=== PATIENT | female | born 1945 | race Caucasian/White ===

== ENCOUNTER 2022-06-01 13:14 | Emergency (ER) | payer MEDICARE, OTHER, SELFPAY ==
[2022-06-01 13:22] VITALS: BP 138/77; PULSE 63; RESP 20; TEMP 36.6; O2SAT 99
--- NOTE | 2022-06-01 13:41 | ED.FEMALEGU ---
HPI - Female Genitourinary General Chief complaint: Urogenital-Female Stated complaint: Urinary Problem Time Seen by Provider: 06/01/22 13:41 Source: patient and RN notes reviewed History of Present Illness HPI Narrative: Patient is a 76-year-old female who presents the urgent care with complaints of a possible UTI due to discomfort and dysuria. Patient denies of any fever, nausea, vomiting. States that she has been taking Azo. States symptoms started this morning. No other acute complaints. No acute distress noted. Patient aware of the plan of care. Some parts of this dictation were generated by voice recognition software and may contain typographical and/or grammatical inaccuracies. Related Data Home Medications Medication Instructions Recorded Confirmed conjugated estrogens 0.45 mg 0.45 mg PO DAILY 06/01/22 06/01/22 tablet (Premarin) trazodone 50 mg tablet 50 mg PO QHS PRN Sleep 06/01/22 06/01/22 Allergies Allergy/AdvReac Type Severity Reaction Status Date / Time Penicillins Allergy Unknown swells Verified 06/01/22 13:23 Sulfa (Sulfonamide Allergy Unknown n/v Verified 06/01/22 13:23 Antibiotics) Review of Systems Review of Systems: CONSTITUTIONAL: Denies fever, chills, or sweats. EYES: Denies visual changes, redness, or discharge. ENT: Denies rhinorrhea, congestion, sore throat, or otalgia. CARDIOVASCULAR: Denies chest pain, palpitations, or edema. RESPIRATORY: Denies cough or dyspnea. GASTROINTESTINAL: Denies abdominal pain, nausea, vomiting, or diarrhea. GENITOURINARY: Reports of dysuria SKIN: Denies rash or itching. MUSCULOSKELETAL: Denies back pain, joint pain, or myalgia. NEUROLOGIC: Denies headache, numbness, or weakness. All other systems reviewed are negative, except as documented in HPI. PMFSH Comments At the time of my signature, I reviewed and agree with the nursing past medical, surgical, social, and family history. There is no relevant family history pertinent to the patient complaint. Exam Narrative: GENERAL: This is a well-nourished, well-developed patient, in no apparent distress. HEAD: normocephalic, atraumatic. EYES: PERRL. Sclera clear/white. Vision is grossly intact. EARS: External ears normal NOSE: External nose normal with no obvious nasal discharge, nares without redness, no rhinorrhea. THROAT: Mucous membranes moist NECK: Neck supple CARDIOVASCULAR: Regular rate and rhythm without murmurs, gallops, or rubs. RESPIRATORY: Clear to auscultation. Breath sounds equal bilaterally. No wheezes, rales, or rhonchi. GASTROINTESTINAL: Abdomen soft, non-tender, nondistended. SKIN: warm, intact with no suspicious lesions or rash, good texture and turgor. NEURO: awake, alert, and oriented to person, place and time. There were no obvious focal neurologic abnormalities. EXTREMITIES: No clubbing, cyanosis, or edema. BACK: Negative bilateral CVA tenderness Course Course Level of Care: Express Care Visit Vital Signs Vital signs: Vital Signs Temperature 97.9 F 06/01/22 13:22 Pulse Rate 63 06/01/22 13:22 Respiratory Rate 20 06/01/22 13:22 Blood Pressure 138/77 06/01/22 13:22 Pulse Oximetry 99 06/01/22 13:22 Oxygen Delivery Room Air 06/01/22 13:22 Temperature 97.9 F 06/01/22 13:22 Pulse Rate 63 06/01/22 13:22 Respiratory Rate 20 06/01/22 13:22 Blood Pressure 138/77 06/01/22 13:22 Pulse Oximetry 99 06/01/22 13:22 Oxygen Delivery Room Air 06/01/22 13:22 Reviewed MDM - Female Genitourinary MDM Narrative Medical decision making narrative: Reviewed lab results with the patient. She is aware that urine analysis is likely indicative of UTI. Advised her to complete the oral antibiotic regimen as prescribed. Be sure to eat and drink with the medication. May continue the Azo as needed. Do not sit in soapy bath water. Avoid sugary and caffeinated drinks and increase your water intake. If you develop any increase in symptoms associated with na
== END 2022-06-01 13:53 | disposition home or self-care (01) ==
PROVIDERS: Emergency Provider Nurse Practitioner Family; PCP Family Medicine
DX: N39.0 Urinary tract infection, site not specified (principal)
CPT/HCPCS: 81003; 87086; 87088; 99203; G0463

== ENCOUNTER 2024-02-09 17:08 | Emergency (ER) | payer MEDICARE, OTHER, SELFPAY ==
--- NOTE | ~2024-02-09 | XR_ITS ---
EXAMINATION: XR chest 2V Exam Date/Time: 02/09/2024 17:40 CDT HISTORY: cough, sob x4 days Comparison: None. RESULT: Lines, tubes, and devices: None. Lungs and pleura: Clear. Cardiomediastinal silhouette: Hiatal hernia, otherwise unremarkable. Other: No acute osseous or upper abdominal finding. Uncomplicated appearing thoracolumbar fusion lefty dware. IMPRESSION: No acute cardiopulmonary process. Reviewed, dictated and finalized at location K.
[2024-02-09 17:15] VITALS: BP 143/75; PULSE 71; RESP 16; TEMP 36.3; O2SAT 98
--- NOTE | 2024-02-09 17:39 | ED.URI ---
HPI - URI/Sore Throat General Chief Complaint: Upper Respiratory Infection Stated Complaint: Congestion/Cough Time Seen by Provider: 02/09/24 17:20 Source: patient and RN notes reviewed Mode of arrival: ambulatory Limitations: no limitations History of Present Illness HPI Narrative: Patient presents today with a 4 day history of productive cough that has been worse since yesterday, and nasal congestion. She also reports shortness of breath and wheezing since yesterday. States symptoms started after she was working outside in her yd with lots of pollen and ragweed. Denies fever. No history of asthma or COPD. She has been taking allergy medicine without relief. Related Data Home Medications Medication Instructions Recorded Confirmed trazodone 50 mg tablet 50 mg PO QHS PRN Sleep 06/01/22 02/09/24 Allergies Allergy/AdvReac Type Severity Reaction Status Date / Time Penicillins Allergy Unknown swells Verified 02/09/24 17:29 Sulfa (Sulfonamide Allergy Unknown n/v Verified 02/09/24 17:29 Antibiotics) Review of Systems Review of Systems: CONSTITUTIONAL: Denies body aches, fever, chills, or sweats. EYES: Denies visual changes, redness, or discharge. ENT: Denies rhinorrhea, sore throat, or otalgia.+ congestion CARDIOVASCULAR: Denies chest pain, palpitations, or edema. RESPIRATORY: + cough, shortness of breath, wheezing. GASTROINTESTINAL: Denies abdominal pain, nausea, vomiting, or diarrhea. GENITOURINARY: Denies dysuria or hematuria. SKIN: Denies rash, itching, or wounds. MUSCULOSKELETAL: Denies back pain, joint pain, or myalgia. NEUROLOGIC: Denies headache, numbness, tingling, or weakness. PSYCH: Denies depression or anxiety. [facility]LY [facility] Past Medical History Medical History (Updated 02/09/24 @ 18:12 by Chaparrita Edawrds, [facility], ) History of hepatitis C Comments At time of signature, I have reviewed and agree with nursing past medical, surgical, social and family history unless otherwise noted. Please see nursing chart for further information. There is no relevant family history pertinent to the presenting complaint Exam Narrative: GENERAL: Well-appearing, well-nourished, and in no acute distress. HEAD: Normocephalic, atraumatic. EYES: EOMI. No redness or drainage. Conjunctivae normal. ENT: Mucous membranes pink and moist. Nares clear. No rhinorrhea. TMs normal bilaterally. Throat normal. Uvula midline. NECK: Normal AROM. Supple. No lymphadenopathy. CHEST: No respiratory distress. Expiratory wheezing throughout. HEART: Regular rate and rhythm. No murmur appreciated. EXTREMITIES: Normal range of motion. No edema. SKIN: Warm, dry, no rash. Capillary refill normal. Normal skin turgor. NEURO: No focal deficits. Alert and oriented x3. Gait steady. PSYCH: Normal affect. No signs of depression or anxiety. Course Course Level of Care: Express Care Visit Vital Signs Vital signs: Vital Signs Temperature 97.3 F L 02/09/24 17:15 Pulse Rate 71 02/09/24 17:15 Respiratory Rate 16 02/09/24 17:15 Blood Pressure 143/75 H 02/09/24 17:15 Pulse Oximetry 98 02/09/24 17:15 Oxygen Delivery Room Air 02/09/24 17:15 Temperature 97.3 F L 02/09/24 17:15 Pulse Rate 71 02/09/24 17:15 Respiratory Rate 16 02/09/24 17:15 Blood Pressure 143/75 H 02/09/24 17:15 Pulse Oximetry 98 02/09/24 17:15 Oxygen Delivery Room Air 02/09/24 17:15 Reviewed MDM - URI/Sore Throat MDM Narrative Medical decision making narrative: Patient states she feels much better after DuoNeb treatment. Chest x-ray negative. Symptoms likely due to bronchitis related to seasonal allergies. Prescriptions for prednisone and an albuterol inhaler will be sent to pharmacy. Patient advised to start some Mucinex to help expectorates or sputum. Patient agrees with plan. Anticipatory guidance given. Differential Diagnosis Differential diagnosis: Likely upper respiratory infection, viral infection, bronchiti
[2024-02-09] MEDS: ALBUTEROL SULFATE NEB 2.5 MG/3 ML INH INHALATION (17:54)
[2024-02-09] MEDS: IPRATROPIUM BR 0.02% INH SOLN 0.5 MG/2.5 ML VIAL INHALATION (17:54)
== END 2024-02-09 18:20 | disposition home or self-care (01) ==
PROVIDERS: Emergency Provider Nurse Practitioner; PCP Family Medicine
DX: J40 Bronchitis, not specified as acute or chronic (principal); J30.2 Other seasonal allergic rhinitis
CPT/HCPCS: 71046; 94640; 99213; G0463